=== PATIENT | male | born 1980 | race Caucasian/White ===

== ENCOUNTER 2025-08-14 11:10 | Emergency (ER) | payer MEDICAID ==
[~2025-08-14] VITALS: Ht 172.7 cm; Wt 63.6 kg
[2025-08-14 11:17] VITALS: TEMP 98.3
[2025-08-14 12:34] VITALS: BP 174/73; PULSE 116; RESP 18; O2SAT 100
[2025-08-14] MEDS ORDERED: NAPROXEN 500 MG TABLET PO ONE (12:45)
[2025-08-14] MEDS ORDERED: ONDANSETRON 4 MG TABLET PO ONE (12:45)
== END 2025-08-14 13:12 | disposition home or self-care (01) ==
LOC: EMS 11:10
DX: F41.9 Anxiety disorder, unspecified (principal); F17.210 Nicotine dependence, cigarettes, uncomplicated; F15.90 Other stimulant use, unspecified, uncomplicated; Z88.8 Allergy status to other drugs, medicaments and biological substances
CPT/HCPCS: 99283